=== PATIENT | female | born 1995 | race Caucasian/White ===

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

== ENCOUNTER 2017-01-09 16:23 | Outpatient (CLI) | payer OTHER ==
[~2017-01-09] VITALS: Ht 167.6 cm; Wt 91.8 kg
[2017-01-09 16:46] VITALS: Ht 167.6 cm; Wt 91.8 kg
[2017-01-09 16:47] VITALS: BP 121/66; PULSE 62; RESP 18
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
--- NOTE | 2017-01-09 20:14 | TRIAGE ---
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 Fall Risk Score Definition: No Risk: No action required Contraction Comments: PT DENIES CRAMPING Comments: PT STATES + FM Pain Presence: None/Denies Pain Type: N/A Amniotic Fluid Amount: None Vaginal Bleeding: None Datetime: 11/07/2016 19:00 Labor Evaluation Frequency: 0 Monitor Mode: External Pattern: Normal: <= 5 Contractions in 10 Minutes Resting Tone [place]: Relaxed Heart Rate FHR Baseline Rate: 160 Monitor Mode: External US FHR Baseline Changes: No Baseline Change Variability: Moderate 6-25 bpm Accelerations: 15X15 Decelerations: None Category: Category I Datetime: 11/07/2016 17:49 Assessment Type: Transfer/Discharge Maternal Assessment Level of Consciousness: Fully Conscious DTR's/Clonus: DTRs 2+; No Clonus Headache: Denies Blurred Vision: No Respiratory Effort: Unlabored; Regular Rhythm; Equal Expansion Breath Sounds, Left: Clear and Equal Breath Sounds, Right: Clear and Equal Nausea/Vomiting: Denies RUQ Epigastric Pain: Denies Lower Extremities Edema: None Degree: None Upper Extremities Edema: None Degree: None Facial Edema: None Temperature Route: Oral Fall Risk Assessment History of Falling: (0) No Secondary Diagnosis: (0) No Ambulatory Aid: (0) Bedrest/Nurse Assist Gait: (0) Normal/Bedrest/Immobile Mental Status: (0) Oriented to Own Ability Labor Evaluation Frequency: X3 Monitor Mode: External Duration (sec)2399: 60 Pattern: Normal: <= 5 Contractions in 10 Minutes Resting Tone [place]: Relaxed Heart Rate FHR Baseline Rate: 175 Monitor Mode: External US Datetime: 11/07/2016 17:21 Stage of : OB Triage Datetime: 11/07/2016 16:59 Stage of : OB Triage Datetime: 11/07/2016 16:28 Labor Evaluation Frequency: 0 Monitor Mode: External Resting Tone [place]: Relaxed Heart Rate FHR Baseline Rate: 155 Monitor Mode: External US Variability: Moderate 6-25 bpm Accelerations: 10X10 Decelerations: None Category: Category I Pain Assessment Pain Scale: 4 Pain Presence: Intermittent Pain Type: Ache Pain Location: Back Pain Goal: 3 Datetime: 11/07/2016 15:09 Labor Evaluation Frequency: 0 Monitor Mode: External Pattern: Normal: <= 5 Contractions in 10 Minutes Resting Tone [place]: Relaxed Heart Rate FHR Baseline Rate: 155 Monitor Mode: External US Variability: Moderate 6-25 bpm Decelerations: None Category: Category I Pain Assessment Pain Scale: 4 Pain Presence: Intermittent Pain Type: Ache Pain Location: Back Pain Goal: 3 Pain Relief Measures: Comfort Measures Datetime: 11/07/2016 14:11 Labor Evaluation Frequency: 0 Monitor Mode: External Resting Tone [place]: Relaxed Heart Rate FHR Baseline Rate: 155 Monitor Mode: External US Variability: Moderate 6-25 bpm Accelerations: 10X10 Decelerations: None Category: Category I Pain Assessment Pain Scale: 5 Pain Presence: Constant Pain Type: Ache Pain Location: Back Pain Goal: 3 Pain Relief Measures: Comfort Measures Datetime: 11/07/2016 14:04 Stage of : OB Triage Datetime: 11/07/2016 12:15 Stage of : OB Triage Datetime: 11/07/2016 11:55 Stage of : OB Triage Assessment Type: Triage Time of Arrival: 11/07/2016 16:59 EGA: 26.5 Arrived By: Ambulatory Arrived From: Home Maternal Assessment Level of Consciousness: Fully Conscious DTR's/Clonus: DTRs 2+; No Clonus Headache: Denies Blurred Vision: No Respiratory Effort: Unlabored; Regular Rhythm; Equal Expansion Breath Sounds, Left: Clear and Equal Breath Sounds, Right: Clear and Equal Nausea/Vomiting: Denies RUQ Epigastric Pain: Denies Facial Edema: None Temperature Route: Axillary Fall Risk Assessment History of Falling: (0) No Secondary Diagnosis: (0) No Ambulatory Aid: (0) Bedrest/Nurse Assist IV Therapy: (0) No Gait: (0) Normal/Bedrest/Immobile Mental Status: (0) Oriented to Own Ability Fall Score: 0 Fall Risk Score Definition: No Risk: No action required Labor Evaluation Frequency: 0 Monitor Mode: External Resting Tone [place]: Relaxed Heart Rate FHR Baseline Rate: 145 Monitor Mode: External US Variability: Moderate 6-25 bpm Pain Assessment Pain Scale: 6 Pain Presence: Intermittent Pain Type: Cramping Pain Location: Back Pain Goal: 3 Pain Relief Measures: Comfort Measures Datetime: 11/07/2016 11:53 Time of Arrival: 11/07/2016 10:39 Arrived By: Ambulatory Arrived From: Home Chief Complaint: BACK PAIN, RT SIDE MORE THAN LEFT, FLANK TENDERNESS, DENIES BLEEDING OR LEAKING OF FLUID Movement: Present Contractions: Denies/Absent Rupture of Membranes: Denies Vaginal Bleeding: None Vaginal Discharge: Denies Recent Sexual Intercouse: Denies Abdominal Trauma: Not Applicable Patient Complaints: Back Pain Time Provider Notified: 11/07/2016 12:15 Provider Notified: MONTY Initial Plan: MONITOR, ORAL HYDRATION, U/A, CL
--- NOTE | 2017-01-09 20:37 | TRIAGE ---
OB Triage Datetime Report Generated by CPN: 01/09/2017 20:37 Datetime: 01/09/2017 20:35 Stage of : OB Triage
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
== END 2017-01-09 20:36 | disposition home or self-care (01) ==
LOC: OBT 16:23 → L-D 16:24 → OBT 20:36
PROVIDERS: ATTEND Obstetrics & Gynecology
DX: O9A.213 Injury, poisoning and certain other consequences of external causes complicating pregnancy, third trimester (principal); Z3A.35 35 weeks gestation of pregnancy; V43.52XA Car driver injured in collision with other type car in traffic accident, initial encounter; Y92.410 Unspecified street and highway as the place of occurrence of the external cause
CPT/HCPCS: 76818; 85460; Z7500; G0463

== ENCOUNTER 2017-01-28 10:58 | Outpatient (CLI) | payer OTHER ==
[~2017-01-28] VITALS: Ht 165.1 cm; Wt 98.0 kg
[~2017-01-28 10:58] MED LIST changes: -CALC1CAP8 PO; -CEPH-443 PO
[2017-01-28 11:21] VITALS: Ht 165.1 cm; Wt 98.0 kg
[2017-01-28 11:22] VITALS: BP 130/60; PULSE 70; RESP 18
--- NOTE | 2017-01-28 12:40 | RADRPT ---
PROCEDURE: OB ultrasound for biophysical profile CLINICAL INDICATION: Decreased movement TECHNIQUE: Multiple sonographic images of the pelvis were obtained. Transabdominal views of the g ravid uterus are available for review. The images were reviewed on a PACS workstation. COMPARISON: Biophysical profile dated 01/09/2017 FINDINGS: breathing movement = 2/2 tone = 2/2 motion = 2/2 JUAN = 2/2 JUAN = 9.2 cm Single live intrauterine with cardiac activity of 134 bpm. position is cephal ic. The placenta is posterior/fundal. IMPRESSION: 1. Single live intrauterine gestation. 2. Biophysical profile = 8. 3. JUAN = 9.2 cm. The JUAN previously measured 20.2 cm on the prior examination dated 01/09/2017. RPTAT: HH .Crista Mason MD, Date Time Electronically viewed and signed by .Crista Mason MD, on 01/28/2017 12:40 .G/
--- NOTE | 2017-01-28 12:56 | PN ---
Triage Information Date/Time Reason for visit: DFM Weeks of Gestation 38+ /Para 1/0 Diabetes: none Diabetes management: diet controlled Hypertention: none Objective Vital Signs Date Time Temp Pulse Resp B/P Pulse Ox O2 Delivery O2 Flow Rate FiO2 01/28/17 11:22 98.1 70 18 130/60 99 Room Air Heart Rate: 140's Contractions: >10 Minutes Apart Disposition: Discharge Assessment/Plan Currently feels baby moves No LOF No VB +FM return to hospital in 2 days for NST NAEL MARTIN M.D. Jan 28, 2017 12:56
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
== END 2017-01-28 12:55 | disposition home or self-care (01) ==
LOC: OBT 10:58 → L-D 10:58 → OBT 12:55
PROVIDERS: ATTEND Obstetrics & Gynecology
DX: O36.8130 Decreased fetal movements, third trimester, not applicable or unspecified (principal); O24.410 Gestational diabetes mellitus in pregnancy, diet controlled; Z3A.38 38 weeks gestation of pregnancy
CPT/HCPCS: 76818; Z7500; G0463

== ENCOUNTER 2017-01-30 16:40 | Outpatient (CLI) | payer OTHER ==
[~2017-01-30] VITALS: Ht 165.1 cm; Wt 98.0 kg
[2017-01-30 16:56] VITALS: Ht 165.1 cm; Wt 98.0 kg
[2017-01-30 16:57] VITALS: BP 130/60; PULSE 72; RESP 18
--- NOTE | 2017-01-30 18:00 | RADRPT ---
PROCEDURE: OB ultrasound for biophysical profile CLINICAL INDICATION: Biophysical profile. TECHNIQUE: Multiple sonographic images of the pelvis were obtained. Transabdominal view of the gr avid uterus are available for review. The images were reviewed on a PACS workstation. COMPARISON: 01/28/2017 FINDINGS: breathing movement = 2/2 tone = 2/2 motion = 2/2 Quantitative amniotic fluid volume = 2/2 JUAN = 11.8 cm Single live intrauterine with cardiac activity at 140 beats per minute. There is a posterior placenta without previa or abruption. IMPRESSION: 1. Single living intrauterine gestation in cephalic position. 2. Biophysical profile = 8. 3. JUAN = 11.8 cm. RPTAT: [facility] Physician Shannen Date Time Electronically viewed and signed by Physician Shannen on 01/30/2017 17:59 /
--- NOTE | 2017-01-30 18:00 | TRIAGE ---
OB Triage Datetime Report Generated by CPN: 01/30/2017 18:00 Datetime: 01/30/2017 17:37 Stage of : OB Triage Maternal Assessment Level of Consciousness: Fully Conscious Labor Evaluation Frequency: 1UC/HR Monitor Mode: External Duration (sec)2399: 140 Quality: Mild Resting Tone [place]: Relaxed Heart Rate FHR Baseline Rate: 135 Monitor Mode: External US Variability: Moderate 6-25 bpm Accelerations: 15X15 Decelerations: None Category: Category I Pain Assessment Pain Scale: 0 Pain Goal: 3 Vaginal Exam Membrane Status: Intact Vaginal Bleeding: None Datetime: 01/30/2017 16:54 Monitor Mode: External Monitor Mode: External US Datetime: 01/30/2017 16:51 Assessment Type: Triage Maternal Assessment Level of Consciousness: Fully Conscious DTR's/Clonus: DTRs 2+; No Clonus Headache: Denies Blurred Vision: No Respiratory Effort: Unlabored; Regular Rhythm; Equal Expansion Breath Sounds, Left: Clear and Equal Breath Sounds, Right: Clear and Equal Nausea/Vomiting: Denies RUQ Epigastric Pain: Denies Lower Extremities Edema: Bilateral Lower Extremities Degree: 1+ Upper Extremities Edema: None Degree: None Facial Edema: None Fall Risk Assessment History of Falling: (0) No Secondary Diagnosis: (0) No Ambulatory Aid: (0) Bedrest/Nurse Assist IV Therapy: (0) No Gait: (0) Normal/Bedrest/Immobile Mental Status: (0) Oriented to Own Ability Fall Score: 0 Fall Risk Score Definition: No Risk: No action required Datetime: 01/30/2017 16:50 Time of Arrival: 01/30/2017 16:32 EGA: 38.5 Arrived By: Ambulatory Arrived From: Home Chief Complaint: PT HERE FOR REPEAT NST/BPP FOR DFM Movement: Present Contractions: Denies/Absent Rupture of Membranes: Denies Vaginal Bleeding: None Vaginal Discharge: Denies Recent Sexual Intercouse: Denies Abdominal Trauma: Not Applicable Patient Complaints: None Time Provider Notified: 01/30/2017 17:50 Provider Notified: MONTY Initial Plan: NST/BPP Datetime: 01/28/2017 11:18 Fall Score: 0 Fall Risk Score Definition: No Risk: No action required Datetime: 01/28/2017 11:17 EGA: 38.3 Datetime: 01/09/2017 19:19 Fall Score: 0 Fall Risk Score Definition: No Risk: No action required Datetime: 01/09/2017 16:42 EGA: 35.5 Datetime: 01/09/2017 16:40 Fall Score: 0 Fall Risk Score Definition: No Risk: No action required Datetime: 11/09/2016 19:16 Fall Score: 0 Fall Risk Score Definition: No Risk: No action required Datetime: 11/09/2016 07:28 Fall Score: 20 Fall Risk Score Definition: No Risk: No action required Datetime: 11/08/2016 19:25 Fall Score: 0 Fall Risk Score Definition: No Risk: No action required Datetime: 11/08/2016 07:53 Fall Score: 20 Fall Risk Score Definition: No Risk: No action required Datetime: 11/07/2016 19:25 Fall Score: 0 Fall Risk Score Definition: No Risk: No action required Datetime: 11/07/2016 11:55 EGA: 26.5 Fall Score: 0 Fall Risk Score Definition: No Risk: No action required
--- NOTE | 2017-01-30 18:37 | CONS ---
Date/Time of Note Date/Time of Note DATE: 01/30/17 TIME: 18:24 Consultation Date/Type/Reason Admit Date/Time January 30, 2017 OB triage consult. This patient is a 21 years old 1 para 0 with estimated date of confinement of 02/08/2017 which makes her 38 weeks and 5 days today she came to OB triage complaining of low movement. In reviewing her record her blood type is O Rh+ hepatitis B surface antigen is nonreactive HIV is nonreactive RPR nonreactive her rubella she is immune to chlamydia and gonorrhea were negative. On general examination she is a well-developed well-nourished at term woman complaining of occasional contractions concerned about the low movement. Her general vital signs are normal with blood pressure 130/60 and the repeat one was 119/58 ,pulse rate 72 respiration 18 temperature 98.9 and oxygen saturation was 96% room temperature as I mentioned she did not have any contractions heart tone was normal. On ultrasound; report is a single live intrauterine with cardiac activity 140 bpm the placenta was posterior no evidence of previa her amniotic fluid index is 11.8 cm biophysical profile of 8/8. with these normal finding patient was discharged home to be followed in the clinic . End of dictation . Constitutional: No chills, No diaphoresis, No disoriented, No febrile, No improved, No no complaints, No other, No poor po, No requiring IVF, No requiring O2 Eyes: No discharge, No no complaints, No other, No pain, No redness, No visual change ENT: No bleeding, No congestion, No discharge, No dysphagia, No no complaints, No other, No pain, No sore throat Respiratory: No cough, No no complaints, No other, No pain, No pleuritic pain, No shortness of breath, No sputum, No wheezing Cardiovascular: No chest pain, No edema, No lightheadedness, No no complaints, No orthopenea, No other, No palpitations, No paroxysmal nocturnal dyspnea Gastrointestinal: No blood, No constipation, No decreased appetite, No diarrhea , No flatus, No nausea, No no complaints, No other, No pain, No passing stool, No vomiting Genitourinary: other (Due to lack of contraction pelvic examination was not performed), No bleeding, No discharge, No dysuria, No flank pain, No hematuria, No no complaints Musculoskeletal: No back pain, No bone/joint pain, No neck pain, No no complaints, No other, No restricted range of motion, No swelling Skin: No bruising, No erythema, No laceration, No no complaints, No other, No pruritis, No rash, No skin lesions Neurologic: No confusion, No dizziness, No focal-weakness, No headache, No no complaints, No other, No seizure, No syncope Endocrine: No dry skin, No no complaints, No other, No polydypsia, No polyuria , No temp intolerance Lymphatic: No adenopathy, No lymphadema, No no complaints, No other, No tender nodes Additional Comments On ultrasound study result was a single live intrauterine with cardiac activity of 140 bpm placenta was posterior. Biophysical profile was 8/8 amniotic fluid index was 11.8 cm With these normal finding patient was discharged home with instruction to rest at home and return to clinic if he continues to have very l low movement or any other complications of Social History Smoking Status: Never smoker Exam/Review of Systems Vital Signs Vitals Vital Signs Date Time Temp Pulse Resp B/P Pulse Ox O2 Delivery O2 Flow Rate FiO2 01/30/17 16:57 98.9 72 18 130/60 99 Room Air ABIEL BARAJAS MD Jan 30, 2017 18:34
== END 2017-01-30 17:55 | disposition home or self-care (01) ==
LOC: OBT 16:40 → L-D 16:41 → OBT 17:55
PROVIDERS: ATTEND Obstetrics & Gynecology
DX: O36.8130 Decreased fetal movements, third trimester, not applicable or unspecified (principal); Z3A.38 38 weeks gestation of pregnancy
CPT/HCPCS: 76818; Z7500; G0463

== ENCOUNTER 2017-02-09 11:00 | Inpatient (IN) | payer OTHER ==
[~2017-02-09] VITALS: Ht 165.1 cm; Wt 96.0 kg
[2017-02-09] MEDS: LACTATED RINGER'S 1,000 ML IV SCH ×3 (14:00→23:53)
[2017-02-09 14:49] VITALS: Ht 165.1 cm; Wt 96.0 kg
[2017-02-09 14:50] VITALS: BP 139/70; PULSE 67; RESP 18
[2017-02-09] MEDS ORDERED: OXYTOCIN 30 UNITS/LR 500 ML IV PRN (15:00)
[2017-02-09] MEDS ORDERED: CARBOPROST 250 MCG INJ IM PRN (15:00)
[2017-02-09] MEDS ORDERED: MINERAL OIL LIGHT 10 ML VIAL TOP PRN (15:00)
[2017-02-09] MEDS ORDERED: OXYCODONE/ACETAMINOPHEN (5/325) TAB PO PRN (15:00)
[2017-02-09] MEDS ORDERED: OXYTOCIN 30 UNITS/LR 500 ML IV SCH (15:00)
[2017-02-09] MEDS ORDERED: IBUPROFEN 600 MG TAB PO PRN (15:00)
[2017-02-09] MEDS ORDERED: METHYLERGONOVINE 0.2 MG INJ IM PRN (15:00)
[2017-02-09] MEDS ORDERED: LIDOCAINE 1% (MPF) 30 ML INJ INJ PRN (15:00)
[2017-02-09] MEDS ORDERED: DINOPROSTONE 10 MG VAG SUPP VAG ONE (15:00)
[2017-02-09] MEDS ORDERED: BUTORPHANOL 2 MG INJ IV PRN ×2 (15:00)
[2017-02-09] MEDS ORDERED: MISOPROSTOL 200 MCG TAB PR PRN (15:00)
[2017-02-09] MEDS ORDERED: FER325 PO (15:35)
--- NOTE | 2017-02-09 15:53 | RADRPT ---
PROCEDURE: US OB. CLINICAL INDICATION: Uncertain size and dates. TECHNIQUE: Multiple sonographic images of the uterus were obtained. The images were revi ewed on a PACS workstation. COMPARISON: No prior studies are available for comparison. FINDINGS: There is a single live intrauterine gestation. heart rate is 139 beats per minute. Measurements were made in order to determine age. The results are as follows: BPD = 9.43 cm. HC = 33.34 cm. AC = 36.87 cm. FL = 7.57 cm. Estimated weight is 3873 +/- 581 grams. LMP growth percentile is 69 %. Menstrual age by ultrasound dates is 39 weeks 0 days. The estimated date of delivery is 02/16/2017. Position is cephalic and placenta is fundal right grade II. There is no evidence for an abruption or placenta previa. IMPRESSION: 1. Single live intrauterine gestation of 39 weeks 0 days menstrual age by ultrasound dates. 2. The estimated date of delivery is 02/16/2017. RPTAT: QQ .Amaury Pham MD, Date Time Electronically viewed and signed by .Amaury Pham MD, on 02/09/2017 15:53 .R/
[2017-02-09] MEDS ORDERED: ALBUTEROL HFA 8 GM INHALER INH PRN (21:30)
--- NOTE | 2017-02-09 21:41 | HP ---
Date/Time of Note Date/Time of Note DATE: 02/09/17 TIME: 21:32 OB - History Hx of Present Free Text/Dictation 20y.o primigravida at 40w1d here for induction of labor for postdate VE ftp/50%/-3 hx of using marijuana 1st 2mo admitted for cervidil induction Chief Complaint: for IOL Estimated Due Date: Feb 08, 2017 : 1 Para: 0 Spontaneous : 0 Therapeutic : 0 Care: Good Care Ultrasounds: Normal mid trimester US Obstetrical Complications: None Medical Complications: Respiratory (asthma) Past Family/Social History * Past Medical, Surgical, Family and Obstetric Histories reviewed from chart. Blood Type: O+ Rubella: immune RPR/VDRL: Negative GBS Status: Negative HBsAG: Negative OB Admission Exam Vital Signs Vital Signs Vital Signs Date Time Temp Pulse Resp B/P Pulse Ox O2 Delivery O2 Flow Rate FiO2 02/09/17 14:50 97.8 67 18 139/70 Room Air Physical Exam HEENT: WNL Heart: Rhythm Normal Lungs: Clear, Equal Abdomen: WNL Extremities: Normal Reflexes: Normal Cervical Dilatation: Fingertip Effacement: 50% Station: -3 Membranes: Intact Amniotic Fluid: Unevaluable Heart Rate: 130's Accelerations: Accelerations Present Decelerations: No Decelerations Varibility: Moderate Contractions on Admission: >10 Minutes Apart Intensity: Mild Last 72 hours Lab Results CBC & BMP 02/09/17 14:00 OB Assessment/Plan Other Assessment: IUP 40w1d Plan: Induction Induction Method: per Misoprostol Protocol SARAH MILLAN MD Feb 09, 2017 21:41
[2017-02-09] MEDS ORDERED: LACTATED RINGER'S 1,000 ML IV PRN (22:00)
[2017-02-10] MEDS ORDERED: FENTAnyl 2MCG/ML-ROPIV 0.2% 100 ML ONE (02:17)
[2017-02-10] MEDS ORDERED: NALOXONE (0.4 MG/ML) INJ IV PRN (03:00)
[2017-02-10] MEDS: FENTAnyl 2MCG/ML-ROPIV 0.2% 100 ML BAG EPI SCH ×2 (03:05→06:29)
[2017-02-10] MEDS: LACTATED RINGER'S 1,000 ML IV SCH (04:42)
[2017-02-10] MEDS ORDERED: MINERAL OIL LIGHT 10 ML VIAL TOP ONE (08:00)
[2017-02-10] MEDS: OXYTOCIN 30 UNITS/LR 500 ML IV SCH ×2 (09:15→09:38)
--- NOTE | 2017-02-10 09:38 | LDN ---
Date/Time of Note Date/Time of Note DATE: 02/10/17 TIME: 09:36 Delivery Summary normal vaginal delivery Weeks of Gestation 40w2d Placenta Delivered: Spontaneously Meconium: none Episiotomy: No Perineal laceration: 0 Laceration repair: vaginal laceration 000ch gut Anesthesia type: Epidural Estimated blood loss: 300 Sponge & Needle done & correct: Yes All needle counts correct: Yes Any foreign bodies felt in the: No Problems: Delivery Information Sex Infant Sex: male Apgars 1 Minute: 8 5 Minute: 9 Suctioning Nose & mouth suctioned at bipin: Yes Delee suction performed: No Umbilical Cord Umbilical cord with: 3 Vessels Cord presentations: no nuchal cord Cord Blood was obtained: Yes Mother & Baby Disposition Disposition Mom & Baby to Maternity; Good: Yes Mom transferred to: Other Baby to NICU: No () SARAH MILLAN MD Feb 10, 2017 09:38
[2017-02-10] MEDS: LACTATED RINGER'S 1,000 ML IV* SCH ×2 (09:39→17:39)
[2017-02-10] MEDS ORDERED: CARBOPROST 250 MCG INJ IM PRN ×2 (10:00→12:00)
[2017-02-10] MEDS ORDERED: METHYLERGONOVINE 0.2 MG INJ IM PRN ×2 (10:00→12:00)
[2017-02-10] MEDS ORDERED: OXYTOCIN 30 UNITS/LR 500 ML IV PRN ×2 (10:00→12:00)
[2017-02-10] MEDS ORDERED: MISOPROSTOL 200 MCG TAB PR PRN ×2 (10:00→12:00)
[2017-02-10 11:45] VITALS: BP 134/75; PULSE 74; RESP 18
[2017-02-10] MEDS ORDERED: ZOLPIDEM 5 MG TAB PO PRN (12:00)
[2017-02-10] MEDS ORDERED: LANOLIN 7 GM TUBE TOP PRN (12:00)
[2017-02-10] MEDS ORDERED: WITCH HAZEL/GLYCERIN PAD PR PRN (12:00)
[2017-02-10] MEDS ORDERED: BENZOCAINE 20% 56 ML SPRAY TOP PRN (12:00)
[2017-02-10] MEDS ORDERED: OXYCODONE/ASPIRIN (4.88/325) TAB PO PRN ×2 (12:00)
[2017-02-10] MEDS: IBUPROFEN 600 MG TAB PO SCH ×2 (13:28→23:28)
[2017-02-10] MEDS: SENNA/DOCUSATE NA (8.6MG/50MG) TAB PO SCH (21:00)
[2017-02-10 23:45] VITALS: BP 122/66; PULSE 72; RESP 18
[2017-02-11 04:30] VITALS: BP 133/58; PULSE 62; RESP 18
[2017-02-11] MEDS: IBUPROFEN 600 MG TAB PO SCH ×5 (06:01→23:36)
[2017-02-11 08:26] VITALS: BP 116/70; PULSE 73; RESP 18
[2017-02-11] MEDS: SENNA/DOCUSATE NA (8.6MG/50MG) TAB PO SCH ×2 (09:07→21:30)
[2017-02-11 16:55] VITALS: BP 117/50; PULSE 62; RESP 18
[2017-02-11 20:10] VITALS: BP 135/71; PULSE 67; RESP 18
--- NOTE | 2017-02-11 21:34 | PN ---
Date/Time of Note Date/Time of Note DATE: 02/11/17 TIME: 21:31 OB Subjective Subjective Subjective no c/o OB Objective Objective Objective vss afebrile fundus firm lochia min ext edematous ++ calf neg for tenderness OB Assessment/Plan Other Assessment: stable post normall vaginal delivery#1 Other plan: discharge home in am SARAH MILLAN MD Feb 11, 2017 21:34
[2017-02-12 04:10] VITALS: BP 137/79; PULSE 64; RESP 17
[2017-02-12] MEDS: IBUPROFEN 600 MG TAB PO SCH ×2 (06:03→12:24)
[2017-02-12 08:30] VITALS: BP 126/60; PULSE 62; RESP 18
[2017-02-12] MEDS ORDERED: DIPHTH/TET/ACEL PERTUSS (ADULT) 0.5 ML VIAL IM* ONE (09:00)
--- NOTE | 2017-02-12 09:01 | PD.PPDC ---
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
--- NOTE | 2017-02-12 09:01 | PD.PPDC ---
MULTIMEDIA DEVELOPER Discharge Instruction Diagnosis Final Diagnosis: s/p Condition Patient Condition: Stable Diet Diet: Resume Regular Diet Activity/Restrictions Activity: May Shower Restrictions: No Lifting No Sexual Activity Nothing in the Vagina No [place] No Tampons, douche Follow-up Follow-up with Physician: 6, Week/Weeks Return to clinic for HYPO SPLASHER Instructions: Fever greater than 101 Chills Worsening abdominal pain Excessive Vaginal Bleeding More than 2 pads per hour Unable to tolerate diet OB Instructions: Breast Tenderness Depression Blurried Vision Headache SARAH MILLAN MD Feb 12, 2017 09:01
--- NOTE | 2017-02-12 09:01 | PD.PPDC ---
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
--- NOTE | 2017-02-12 09:03 | DS ---
Date/Time of Note Date/Time of Note DATE: 02/12/17 TIME: 09:02 Obstetrical Discharge Record Final Diagnosis Final Diagnosis: Term delivered Vaginal Delivery Obstetrical Delivery: Spontaneous, Laceration, Repaired Complications Induction: Yes Rupture of Membranes: No Condition on Discharge Physical Assessment Last Vitals: vss afebrile Voiding: Yes Bowel Movement: Yes Breast: Soft, non-tender Fundus: Firm Episiotomy: none Calf Tenderness: No Patient Condition: Stable SARAH MILLAN MD Feb 12, 2017 09:03
[2017-02-12] MEDS: SENNA/DOCUSATE NA (8.6MG/50MG) TAB PO SCH (09:31)
== END 2017-02-12 15:31 | disposition home or self-care (01) | DRG 775 ==
LOC: L-D 11:50 → PP1 02-10 11:27
PROVIDERS: ADMIT Obstetrics & Gynecology; ATTEND Obstetrics & Gynecology
PROC: 10E0XZZ Delivery of Products of Conception, External Approach (ICD-10-PCS; principal; 2017-02-10)
PROC: 0UQMXZZ Repair Vulva, External Approach (ICD-10-PCS; 2017-02-10)
PROC: 3E0P3VZ Introduction of Hormone into Female Reproductive, Percutaneous Approach (ICD-10-PCS; 2017-02-10)
DX: O48.0 Post-term pregnancy (principal); O71.4 Obstetric high vaginal laceration alone; Z37.0 Single live birth; Z3A.40 40 weeks gestation of pregnancy
CPT/HCPCS: 62319; 76815; 80053; 80307; 81001; 84560; 85025; 85384; 85610; 85730; 86592; 86900; 86901; 87340; 90715; A4310; J0595; J3010; J7120

== ENCOUNTER 2018-08-18 14:52 | Emergency (ER) | payer OTHER ==
[~2018-08-18] VITALS: Wt 75.8 kg
[~2018-08-18 14:52] MED LIST changes: +ACET325T33 PO; +FER325 PO; +IBUP-1542 PO
[2018-08-18 15:01] VITALS: BP 128/66; RESP 18
[2018-08-18] MEDS ORDERED: ALBUTEROL 0.083% (NEB) 2.5 MG/3 ML AMP HHN STA (15:57)
[2018-08-18] MEDS ORDERED: METHYLPREDNISOLONE 125 MG INJ IM ONE (16:00)
[2018-08-18] MEDS ORDERED: ADV25050 INHALATION (16:44)
[2018-08-18] MEDS ORDERED: ALBU18HF INHALATION (16:44)
[2018-08-18] MEDS ORDERED: PRED20TA PO (16:44)
[2018-08-18] MEDS ORDERED: AZIT250T PO (16:44)
[2018-08-18] MEDS ORDERED: ALBU2.5V3 NEB ×2 (16:45→16:47)
--- NOTE | 2018-08-18 16:51 | ERD ---
ER Documentation Chief Complaint Chief Complaint INHALERS NOT WORKING HPI 22-year-old female presents with a history of wheezing and shortness of breath worsening over the last 3 days. She is productive cough as well. She denies fevers. She has a history of asthma usually worse with URIs patient has chest pain, vomiting, abdominal pain. She uses albuterol only and is out. ROS All systems reviewed and are negative except as per history of present illness. Medications Home Meds Active Scripts Albuterol Sulfate* (Albuterol Sulfate* Neb) 0.083%-3 Ml Neb, 2.5 MG NEB Q4 PRN for SHORTNESS OF BREATH, #30 EA Prov:JAYDON VILLEGAS MD 08/18/18 Albuterol Sulfate* (Albuterol Sulfate* Neb) 0.083%-3 Ml Neb, 2.5 MG NEB Q4 PRN for SHORTNESS OF BREATH, #30 EA Prov:JAYDON VILLEGAS MD 08/18/18 Azithromycin* (Zithromax*) 250 Mg Tablet, 250 MG PO .ZPACK DIRECTED, #6 TAB TAKE 500 MG (2 TABS) THE FIRST DAY THEN 250 MG (1 TAB) DAYS 2-5 Prov:JAYDON VILLEGAS MD 08/18/18 Prednisone* (Prednisone*) 20 Mg Tab, 40 MG PO DAILY for 5 Days, TAB Prov:JAYDON VILLEGAS MD 08/18/18 Salmeterol Xinaf/Fluticasone* (Advair*) 250-50 Diskus Inhaler, 1 INH INHALATION BID, #1 INHALER Prov:JAYDON VILLEGAS MD 08/18/18 Albuterol Sulfate* (Ventolin HFA*) 18 Gm Hfa.aer.ad, 2 PUFF INHALATION Q4H, #1 INHALER Prov:JAYDON VILLEGAS MD 08/18/18 Acetaminophen* (Tylenol*) 325 Mg Tablet, 2 TAB PO Q6 PRN for PAIN AND OR ELEVATED TEMP, #20 TAB Prov:DIMAS WARNER PA-C 05/05/18 Ibuprofen* (Motrin*) 600 Mg Tab, 600 MG PO Q6, #30 TAB Prov:DIMAS WARNER PA-C 05/05/18 Reported Medications Ferrous Sulfate* (Ferrous Sulfate*) 325 Mg Tabec, 325 MG PO DAILY, TAB 02/09/17 Multivit/Min/Fol Ac/Iron/Pren* ( S*) 1 Tab Tab, 1 TAB PO DAILY, TAB 08/18/16 Allergies Allergies: Coded Allergies: No Known Allergy (Unverified , 05/05/18) PMhx/Soc History of Surgery: No Anesthesia Reaction: No Hx Neurological Disorder: No Hx Respiratory Disorders: Yes (asthma) Hx Cardiac Disorders: No Hx Psychiatric Problems: No Hx Miscellaneous Medical Probl: No Hx Alcohol Use: No Hx Substance Use: No Hx Tobacco Use: No FmHx Family History: No diabetes, No coronary disease, No other Physical Exam Vitals Vital Signs Date Temp Pulse Resp B/P (MAP) Pulse Ox O2 O2 Flow FiO2 Time Delivery Rate 08/18/18 84 20 97 21 16:34 08/18/18 99.4 70 18 128/66 98 15:01 (86) Physical Exam Const: No acute distress Head: Atraumatic Eyes: Normal Conjunctiva ENT: Normal External Ears, Nose and Mouth. TMs normal. Neck: Full range of motion. No meningismus. Resp: Clear to auscultation bilaterally diffuse wheezing. No rales. No significant retractions. Cardio: Regular rate and rhythm, no murmurs Abd: Soft, non tender, non distended. Normal bowel sounds Skin: No petechiae or rashes Back: No midline or flank tenderness Ext: No cyanosis, or edema Neur: Awake and alert Psych: Normal Mood and Affect Results 24 hrs Current Medications Medications Dose Sig/Jose Start Time Status Last (Trade) Ordered Route PRN Stop Time Admin Dose Reason Admin 125 mg ONCE ONCE 08/18/18 DC 08/18/18 Methylprednis IM 16:00 16:10 olone Sodium 08/18/18 16:01 Succinate (Solu-Medrol) Albuterol 5 mg ONCE STAT 08/18/18 DC 08/18/18 (Proventil HHN 15:57 16:32 0.083% (Neb)) 08/18/18 15:58 Procedures/MDM She presents with signs and symptoms of acute asthma exacerbation likely related to URI. She has no signs of hypoxemia, rest or distress, signs of pneumonia on exam. She is given Solu-Medrol 125 mg IM, albuterol treatment x1. Patient clear lungs on serial exam. Patient will be discharged home with close observation and return precautions. Will administer prescription for Advair, Ventolin, short course of prednisone, as well as a prescription for albuterol solution nebulizer per patient request. Will give Zithromax as well for productive cough for last week. The patient was stable with no new complaints during the ER course. Clinically, there is no current evidence to suggest meningitis, sepsis, acute abdomen, pneumonia, stroke, acute coronary syndrome, pulmonary embolism, aortic dissection or any other emergent condition appearing to require further evaluation or hospitalization. Patient counseled regarding my diagnostic impression and care plan. Prior to discharge all questions answered. Pt agrees with treatment plan and understands strict return precautions. Pt is instructed to follow up with primary care provider within 24- 48 hours. Precautionary instructions provided including instructions to return to the ER if not improving or for any worsening or changing symptoms or concerns. Disclaimer: Inadvertent spelling and grammatical errors are likely due to EHR/dictation software use and do not reflect on the overall quality of patient care. Also, please note that the electronic time recorded on this note does not necessarily reflect the actual time of the patient encounter. Departure Diagnosis: Primary Impression: Asthma Asthma severity: unspecified severity Asthma persistence: unspecified Asthma complication type: unspecified Qualified Codes: J45.909 - Unspecified asthma, uncomplicated Condition: Stable Patient Instructions: Asthma, Acute (Adult) Referrals: NO PRIMARY,CARE PHYSICIAN (PCP) Additional Instructions: Recheck for new or worsening symptoms with primary care doctor. JAYDON VILLEGAS MD August 18, 2018 16:51
[2018-08-18 17:05] VITALS: PULSE 98
[2018-08-19] MEDS ORDERED: CEPH-443 PO (17:27)
[2018-08-19] MEDS ORDERED: IBUP-1542 PO (17:27)
== END 2018-08-18 17:06 | disposition home or self-care (01) ==
LOC: FTE 14:52
DX: J45.901 Unspecified asthma with (acute) exacerbation (principal)
CPT/HCPCS: 94664; 96372; J2930; Z7502; Z7610

== ENCOUNTER 2018-08-19 13:35 | Emergency (ER) | payer OTHER ==
[~2018-08-19] VITALS: Wt 75.1 kg
[~2018-08-19 13:35] MED LIST changes: +ADV25050 INHALATION; +ALBU18HF INHALATION; +ALBU2.5V3 NEB; +AZIT250T PO; +PRED20TA PO
[2018-08-19] MEDS ORDERED: ONDANSETRON (ODT) 4 MG TAB ODT STA (14:02)
[2018-08-19] MEDS ORDERED: DEXAMETHASONE 10 MG/ML 1 ML INJ IM STA (14:02)
[2018-08-19] MEDS ORDERED: LEVALBUTEROL (NEB) 1.25 MG/0.5 ML AMP INH STA ×2 (14:02→16:57)
[2018-08-19] MEDS ORDERED: IPRATROPIUM (NEB) 0.5 MG/2.5 ML AMP INH STA (14:03)
[2018-08-19] MEDS ORDERED: ACETAMINOPHEN 325 MG TAB PO ONE (14:30)
[2018-08-19] MEDS ORDERED: KETOROLAC 60 MG INJ IM STA (15:20)
[2018-08-19] MEDS ORDERED: CEFTRIAXONE 1 GM INJ IM ONE (17:00)
[2018-08-19] MEDS ORDERED: LIDOCAINE 1% (MPF) 5 ML VIAL INJ ONE (17:00)
[2018-08-19] MEDS ORDERED: CEPH-443 PO (17:27)
[2018-08-19] MEDS ORDERED: IBUP-1542 PO (17:27)
--- NOTE | 2018-08-19 18:38 | ERD ---
ER Documentation Chief Complaint Chief Complaint continued SOB, inspiratory pains. seen yesterday for asthma exacerbation HPI 22 year-old female patient with a past medical history of asthma presents to the ED complaining of chest pain that started earlier today. States that the wheezing has not resolved. Patient was here yesterday and received a breathing treatment. Patient was given fluticasone, albuterol as well as albuterol machine prescription. Patient reports no recent travel. Denies any leg pain. Denies any pleuritic chest pain, dyspnea on exertion, orthopnea. Patient reports that the anterior portion of her chest worsens in pain when she presses onto her chest. Describes the pain as sharp and rates it a 4 out of 10. ROS All systems reviewed and are negative except as per history of present illness. Medications Home Meds Active Scripts Ibuprofen* (Motrin*) 600 Mg Tab, 600 MG PO Q6, #30 TAB Prov:KAVYA GILLILAND PA-C 08/19/18 Cephalexin* (Keflex*) 500 Mg Capsule, 500 MG PO QID for 10 Days, CAP Prov:KAVYA GILLILAND PA-C 08/19/18 Albuterol Sulfate* (Albuterol Sulfate* Neb) 0.083%-3 Ml Neb, 2.5 MG NEB Q4 PRN for SHORTNESS OF BREATH, #30 EA Prov:JAYDON BEDOLLA MD 08/18/18 Albuterol Sulfate* (Albuterol Sulfate* Neb) 0.083%-3 Ml Neb, 2.5 MG NEB Q4 PRN for SHORTNESS OF BREATH, #30 EA Prov:JAYDON BEDOLLA MD 08/18/18 Azithromycin* (Zithromax*) 250 Mg Tablet, 250 MG PO .ZPACK DIRECTED, #6 TAB TAKE 500 MG (2 TABS) THE FIRST DAY THEN 250 MG (1 TAB) DAYS 2-5 Prov:JAYDON BEDOLLA MD 08/18/18 Prednisone* (Prednisone*) 20 Mg Tab, 40 MG PO DAILY for 5 Days, TAB Prov:JAYDON BEDOLLA MD 08/18/18 Salmeterol Xinaf/Fluticasone* (Advair*) 250-50 Diskus Inhaler, 1 INH INHALATION BID, #1 INHALER Prov:JAYDON BEDOLLA MD 08/18/18 Albuterol Sulfate* (Ventolin HFA*) 18 Gm Hfa.aer.ad, 2 PUFF INHALATION Q4H, #1 INHALER Prov:JAYDON BEDOLLA MD 08/18/18 Acetaminophen* (Tylenol*) 325 Mg Tablet, 2 TAB PO Q6 PRN for PAIN AND OR ELEVATED TEMP, #20 TAB Prov:DIMAS WARNER PA-C 05/05/18 Ibuprofen* (Motrin*) 600 Mg Tab, 600 MG PO Q6, #30 TAB Prov:DIMAS WARNER PA-C 05/05/18 Reported Medications Ferrous Sulfate* (Ferrous Sulfate*) 325 Mg Tabec, 325 MG PO DAILY, TAB 02/09/17 Multivit/Min/Fol Ac/Iron/Pren* ( S*) 1 Tab Tab, 1 TAB PO DAILY, TAB 08/18/16 Allergies Allergies: Coded Allergies: No Known Allergy (Unverified , 05/05/18) PMhx/Soc History of Surgery: No Anesthesia Reaction: No Hx Neurological Disorder: No Hx Respiratory Disorders: Yes (asthma) Hx Cardiac Disorders: No Hx Psychiatric Problems: No Hx Miscellaneous Medical Probl: No Hx Alcohol Use: No Hx Substance Use: No Hx Tobacco Use: No Smoking Status: Never smoker FmHx Family History: No diabetes, No coronary disease Physical Exam Vitals Vital Signs Date Temp Pulse Resp B/P (MAP) Pulse Ox O2 O2 Flow FiO2 Time Delivery Rate 08/19/18 98.0 99 18 131/60 99 Room Air 19:00 (83) 08/19/18 80 17 98 21 14:40 08/19/18 100.2 14:18 08/19/18 100.2 80 24 145/77 95 13:38 (99) Physical Exam Const: [id number], well-nourished. In no acute distress. Head: Atraumatic, normocephalic Eyes: Normal Conjunctiva without injection. No purulent discharge. PERRL. EOMI ENT: Normal external ear. Ear canal without erythema. Tympanic membrane pearly diaz without effusion or bulging. Nasal canal clear with normal turbinates. Mois t oropharynx without tonsillar exudates. Non-erythematous pharynx. Uvula midline. No drooling. No trismus. Neck: Full range of motion. No meningismus. No cervical lymphadenopathy. Resp: Inspiratory and expiratory wheezing noted. No rhonchi, rales, or c rackles. No accessory muscle use. No retractions. Cardio: Regular rate and rhythm. No murmurs, rubs or gallops. Abd: Soft, non tender, non distended. Normal bowel sounds. No palpable masses. No rebound tenderness. No guarding. Skin: No petechiae or rashes Back: No midline tenderness. No CVA tenderness. Ext: No cyanosis, or edema. Neur: Awake and alert. Psych: Normal Mood and Affect Results 24 hrs Laboratory Tests Test 08/19/18 16:27 08/19/18 16:29 Bedside Urine pH (LAB) 6.0 Bedside Urine Protein (LAB) 3+ Bedside Urine Glucose (UA) Negative Bedside Urine Ketones (LAB) 1+ Bedside Urine Blood 3+ Bedside Urine Nitrite (LAB) Positive Bedside Urine Leukocyte Esterase (L 1+ POC Beta HCG, Qualitative NEGATIVE Current Medications Medications Dose Sig/Jose Start Time Status Last (Trade) Ordered Route PRN Stop Time Admin Dose Reason Admin 5 mg ONCE STAT 08/19/18 DC 08/19/18 Levalbuterol INH 14:02 14:37 (Xopenex 08/19/18 14:04 Neb) 10 mg ONCE STAT 08/19/18 DC 08/19/18 Dexamethasone IM 14:02 14:17 (Decadron) 08/19/18 14:04 Ondansetron 4 mg ONCE STAT 08/19/18 DC 08/19/18 HCl (Zofran ODT 14:02 14:18 Odt) 08/19/18 14:04 650 mg ONCE ONCE 08/19/18 DC 08/19/18 Acetaminophen PO 14:30 14:18 (Tylenol 08/19/18 14:31 Tab) Ipratropium 1 mg ONCE STAT 08/19/18 DC 08/19/18 [place] INH 14:03 14:37 (Atrovent 08/19/18 14:04 0.02% (Neb)) Ketorolac 60 mg ONCE STAT 08/19/18 DC Tromethamine IM 15:20 (Toradol) 08/19/18 15:21 Ceftriaxone 1 gm ONCE ONCE 08/19/18 DC 08/19/18 Sodium IM 17:00 18:51 (Rocephin) 08/19/18 17:01 Lidocaine 5 ml ONCE ONCE 08/19/18 DC 08/19/18 (Xylocaine INJ 17:00 18:52 1% (Mpf)) 08/19/18 17:01 5 mg ONCE STAT 08/19/18 DC 08/19/18 Levalbuterol INH 16:57 17:18 (Xopenex 08/19/18 17:00 Neb) Procedures/MDM 22-year-old female patient with a past medical history of asthma presents ED com plaining of chest pain that started earlier today associated with wheezing. Patient is afebrile and nontoxic-appearing. This was less than my supervising physician, Dr. Bedolla since patient was seen by him yesterday. We both agreed to order a chest x-ray, EKG for further evaluation. Patient was given 2 breathing treatments consisting of 5 mg continuous Xopenex, 1 mg Atrovent with improvement of her symptoms. Patient's pulse ox is within normal limits. Upon ordering a urine for Toradol 60 mg IM, patient did not want the Toradol. A urine dip was performed which there was an incidental finding of positive nitrite, leukocyte esterase, hematuria noted. Patient will be treated for urinary tract infection. Patient did come in with a low-grade fever 100.2. This could be secondary to her UTI versus URI symptoms associated with an asthma exacerbation. Patient regardless will still be treated with ceftriaxone 1 g here in the ED for urinary tract infection as well as outpatient management with Keflex. Patient is to continue her prednisone, prescribed yesterday for her wheezing. Patient should continue breathing treatments albuterol. EKG reviewed and interpreted by Dr. Bedolla Rate/Rhythm: [82 bpm, Normal Sinus Rhythm] No ectopy, no ST elevations, normal axis. QRS, ST, T-waves: [No changes consistent w/ acute ischemia] Impression: [No evidence of ischemia or arrhythmia] Low suspicion for acute myocardial infarction, pneumothorax, pneumonia, cardiac tamponade, Qtjcx-Lszcgzmkb-Zrsbi Syndrome, Brugada Syndrome, pulmonary embolism, AAA, aortic dissection, thoracic aortic dissection, endocarditis, myocarditis, pericarditis, cocaine-related ischemia, Boerhaave's syndrome, cardiac dysrhythmias,meningitis, intracranial bleed, seizure, stroke, TIA or other emergent conditions. Diagnosis: UTI, Wheezing, Chest Pain Discharge medications: Ibuprofen, Keflex Follow up with primary care physician in 1-2 days. Instructed patient to return to the ED sooner for any worsening symptoms. Patient's questions were answered. Patient is hemodynamically stable. Patient understood and agreed with discharge plan. Patient discharged stable. Disclaimer: Inadvertent spelling and grammatical errors are likely due to EHR/dictation software use and do not reflect on the overall quality of patient care. Also, please note that the electronic time recorded on this note does not necessarily reflect the actual time of the patient encounter. Departure Diagnosis: Primary Impression: UTI (urinary tract infection) Urinary tract infection type: site unspecified Hematuria presence: without hematuria Qualified Codes: N39.0 - Urinary tract infection, site not specified Additional Impressions: Wheezing Chest pain Chest pain type: unspecified Qualified Codes: R07.9 - Chest pain, unspecified Condition: Stable Patient Instructions: Urinary Tract Infections in Women, Asthma, Acute (Adult), Chest Wall Pain, Costochondritis Referrals: [facility] YOU HAVE RECEIVED A MEDICAL SCREENING EXAM AND THE RESULTS INDICATE THAT YOU DO NOT HAVE A CONDITION THAT REQUIRES URGENT TREATMENT IN THE EMERGENCY DEPARTMENT. FURTHER EVALUATION AND TREATMENT OF YOUR CONDITION CAN WAIT UNTIL YOU ARE SEEN IN YOUR DOCTORS OFFICE WITHIN THE NEXT 1-2 DAYS. IT IS YOUR RESPONSIBILITY TO MAKE AN APPOINTMENT FOR FOLOW-UP CARE. IF YOU HAVE A PRIMARY DOCTOR --you should call your primary doctor and schedule an appointment IF YOU DO NOT HAVE A PRIMARY DOCTOR YOU CAN CALL OUR PHYSICIAN REFERRAL HOTLINE AT IF YOU CAN NOT AFFORD TO SEE A PHYSICIAN YOU CAN CHOSE FROM THE FOLLOWING [facility] CLINICS [facility] [address] [facility] [address] [facility] [address] [facility] [address] [facility] [address] [facility]. [facility]. [address] [facility]. [facility] YOU HAVE RECEIVED A MEDICAL SCREENING EXAM AND THE RESULTS INDICATE THAT YOU DO NOT HAVE A CONDITION THAT REQUIRES URGENT TREATMENT IN THE EMERGENCY DEPARTMENT. FURTHER EVALUATION AND TREATMENT OF YOUR CONDITION CAN WAIT UNTIL YOU ARE SEEN IN YOUR DOCTORS OFFICE WITHIN THE NEXT 1-2 DAYS. IT IS YOUR RESPONSIBILITY TO MAKE AN APPOINTMENT FOR FOLOW-UP CARE. IF YOU HAVE A PRIMARY DOCTOR --you should call your primary doctor and schedule and appointment IF YOU DO NOT HAVE A PRIMARY DOCTOR YOU CAN CALL OUR PHYSICIAN REFERRAL HOTLINE AT . IF YOU CAN NOT AFFORD TO SEE A PHYSICIAN YOU CAN CHOSE FROM THE FOLLOWING [facility] INSTITUTIONS: [facility] [address] [place] [address] [facility] [address] [place] [address] [facility] [address] [place] [address] [facility] URGENT CARE/SPECIALTIES Additional Instructions: Continue the steriods and inhalers prescribed yesterday for your asthma exacerbation. Antibiotics have been prescribed to you for your urinary tract infection. Please complete the course of the antibiotics. Call your primary care doctor TOMORROW for an appointment during the next 2-3 days.See the doctor sooner or return here if your condition worsens before your appointment time. KAVYA GILLILAND PA-C August 19, 2018 18:38
[2018-08-19 19:00] VITALS: BP 131/60; PULSE 99; RESP 18
--- NOTE | 2018-08-21 14:44 | RADRPT ---
Vent Rate: 82 bpm RR Interval: [address] Interval: 154 msec QRS Duration: 106 msec QT Interval: 404 msec QTC Interval: 472 msec P-R-T Wilbur: 65 - 80 - 59 degrees Normal sinus rhythm with sinus arrhythmia Incomplete right bundle branch block Borderline ECG Electronically Signed By: [facility]
== END 2018-08-19 19:00 | disposition home or self-care (01) ==
LOC: FTE 13:35
DX: N39.0 Urinary tract infection, site not specified (principal); J45.901 Unspecified asthma with (acute) exacerbation
CPT/HCPCS: 71045; 81003; 81025; 93005; 94644; 96372; J0696; J1100; Z7502; Z7610

== ENCOUNTER 2018-10-28 17:46 | Emergency (ER) | payer OTHER ==
[~2018-10-28] VITALS: Ht 165.1 cm; Wt 75.5 kg
[~2018-10-28 17:46] MED LIST changes: +ACET500C5 PO; +CEPH-443 PO; +ONDA4TAB14 PO
[2018-10-28 17:55] VITALS: Ht 165.1 cm; Wt 75.5 kg
[2018-10-28] MEDS ORDERED: morphine 4 MG/ML VIAL IV STA (18:55)
[2018-10-28] MEDS ORDERED: ONDANSETRON 4 MG INJ IV STA (18:55)
[2018-10-28] MEDS ORDERED: FAMOTIDINE 20 MG INJ IV STA (18:55)
[2018-10-28] MEDS ORDERED: SOD CHLORIDE 0.9% 1,000 ML IV STA (18:55)
--- NOTE | 2018-10-28 18:57 | ERD ---
ER Documentation Chief Complaint Chief Complaint interm vomiting x1.5wks worse today. feels feverish. hx IUD 07/2017 HPI Is a 22-year-old female patient who presents to the emergency room with complaint of intermittent vomiting x1-1/2-week. Concerned it may be due to her IUD. Subjective fever, some diarrhea, no abdominal pain, no vaginal bleeding, no vaginal discharge, no dysuria. History significant for asthma. LMP October 10. No recent travel, no sick contacts. ROS All systems reviewed and are negative except as per history of present illness. Medications Home Meds Active Scripts Ibuprofen* (Motrin*) 600 Mg Tab, 600 MG PO Q6 for 10 Days, #30 TAB Prov:ELEAZAR JASMINE NP 10/28/18 Acetaminophen* (Tylophen*) 500 Mg Capsule, 2 CAP PO Q8H PRN for PAIN AND OR ELEVATED TEMP for 10 Days, #20 CAP Prov:ELEAZAR JASMINE NP 10/28/18 Ondansetron (Ondansetron Odt) 4 Mg Tab.rapdis, 4 MG PO Q6H PRN for NAUSEA AND/OR VOMITING for 7 Days, #10 TAB Prov:ELEAZAR JASMINE NP 10/28/18 Ibuprofen* (Motrin*) 600 Mg Tab, 600 MG PO Q6, #30 TAB Prov:KAVYA GILLILAND PA-C 08/19/18 Cephalexin* (Keflex*) 500 Mg Capsule, 500 MG PO QID for 10 Days, CAP Prov:KAVYA GILLILAND PA-C 08/19/18 Albuterol Sulfate* (Albuterol Sulfate* Neb) 0.083%-3 Ml Neb, 2.5 MG NEB Q4 PRN for SHORTNESS OF BREATH, #30 EA Prov:JAYDON VILLEGAS MD 08/18/18 Albuterol Sulfate* (Albuterol Sulfate* Neb) 0.083%-3 Ml Neb, 2.5 MG NEB Q4 PRN for SHORTNESS OF BREATH, #30 EA Prov:JAYDON VILLEGAS MD 08/18/18 Azithromycin* (Zithromax*) 250 Mg Tablet, 250 MG PO .ZPACK DIRECTED, #6 TAB TAKE 500 MG (2 TABS) THE FIRST DAY THEN 250 MG (1 TAB) DAYS 2-5 Prov:JAYDON VILLEGAS MD 08/18/18 Prednisone* (Prednisone*) 20 Mg Tab, 40 MG PO DAILY for 5 Days, TAB Prov:JAYDON VILLEGAS MD 08/18/18 Salmeterol Xinaf/Fluticasone* (Advair*) 250-50 Diskus Inhaler, 1 INH INHALATION BID, #1 INHALER Prov:JAYDON VILLEGAS MD 08/18/18 Albuterol Sulfate* (Ventolin HFA*) 18 Gm Hfa.aer.ad, 2 PUFF INHALATION Q4H, #1 INHALER Prov:JAYDON VILLEGAS MD 08/18/18 Acetaminophen* (Tylenol*) 325 Mg Tablet, 2 TAB PO Q6 PRN for PAIN AND OR ELEVATED TEMP, #20 TAB Prov:DIMAS WARNER PA-C 05/05/18 Ibuprofen* (Motrin*) 600 Mg Tab, 600 MG PO Q6, #30 TAB Prov:DIMAS WARNER PA-C 05/05/18 Reported Medications Ferrous Sulfate* (Ferrous Sulfate*) 325 Mg Tabec, 325 MG PO DAILY, TAB 02/09/17 Multivit/Min/Fol Ac/Iron/Pren* ( S*) 1 Tab Tab, 1 TAB PO DAILY, TAB 08/18/16 Allergies Allergies: Coded Allergies: No Known Allergy (Unverified , 10/28/18) PMhx/Soc History of Surgery: No Anesthesia Reaction: No Hx Neurological Disorder: No Hx Respiratory Disorders: Yes (asthma) Hx Cardiac Disorders: No Hx Psychiatric Problems: No Hx Miscellaneous Medical Probl: No Hx Alcohol Use: No Hx Substance Use: No Hx Tobacco Use: No Smoking Status: Never smoker FmHx Family History: No diabetes, No coronary disease, No other Physical Exam Vitals Vital Signs Date Temp Pulse Resp B/P (MAP) Pulse Ox O2 O2 Flow FiO2 Time Delivery Rate 10/28/18 99.1 71 20 110/52 99 Room Air 22:00 (71) 10/28/18 100.2 20:55 10/28/18 100.7 89 16 123/60 98 17:55 (81) Physical Exam Const: No acute distress Head: Atraumatic Eyes: Normal Conjunctiva, PERRL ENT: Normal External Ears, Nose and Mouth. Pharynx pink, no lesions, no exudate. Neck: Full range of motion. No meningismus. No lymphadenopathy. Resp: Clear to auscultation bilaterally, no wheezing Cardio: Regular rate and rhythm, no murmurs Abd: Soft, non distended. Normal bowel sounds, no organomegaly. +myrphy, +RLQ rebound tenderness Skin: No petechiae or rashes Back: No midline or flank tenderness, no CVT Ext: No cyanosis, or edema Neur: Awake and alert, CNII-XII intact, clear speech, steady gait Psych: Normal Mood and Affect Result Diagram: 10/28/18191110/28/181911 Results 24 hrs Laboratory Tests Test 10/28/18 19:12 10/28/18 19:14 White Blood Count 12.2 10^3/ul Red Blood Count 4.67 10^6/ul Hemoglobin 13.4 g/dl Hematocrit 40.4 % Mean Corpuscular Volume 86.5 fl Mean Corpuscular Hemoglobin 28.7 pg Mean Corpuscular Hemoglobin Concent 33.2 g/dl Red Cell Distribution Width 13.2 % Platelet Count 258 10^3/UL Mean Platelet Volume 10.2 fl Immature Granulocytes % 0.400 % Neutrophils % 90.4 % Lymphocytes % 4.4 % Monocytes % 4.0 % Eosinophils % 0.6 % Basophils % 0.2 % Nucleated Red Blood Cells % 0.0 /100WBC Immature Granulocytes # 0.050 10^3/ul Neutrophils # 11.0 10^3/ul Lymphocytes # 0.5 10^3/ul Monocytes # 0.5 10^3/ul Eosinophils # 0.1 10^3/ul Basophils # 0.0 10^3/ul Nucleated Red Blood Cells # 0.0 10^3/ul Urine Color YELLOW Urine Clarity CLEAR Urine pH 5.0 Urine Specific Snelling 1.020 Urine Ketones 1+ mg/dL Urine Nitrite NEGATIVE mg/dL Urine Bilirubin NEGATIVE mg/dL Urine Urobilinogen NEGATIVE mg/dL Urine Leukocyte Esterase NEGATIVE Fritz/ul Urine Microscopic RBC 2 /HPF Urine Microscopic WBC 1 /HPF Urine Squamous Epithelial Cells FEW /HPF Urine Mucus FEW /HPF Urine Hemoglobin 1+ mg/dL Urine Glucose NEGATIVE mg/dL Urine Total Protein NEGATIVE mg/dl Sodium Level 142 mmol/L Potassium Level 3.7 mmol/L Chloride Level 105 mmol/L Carbon Dioxide Level 25 mmol/L Anion Gap 12 Blood Urea Nitrogen 14 mg/dl Creatinine 0.67 mg/dl Est Glomerular Filtrat Rate mL/min > 60 mL/min Glucose Level 122 mg/dl Calcium Level 9.9 mg/dl Total Bilirubin 0.9 mg/dl Direct Bilirubin 0.00 mg/dl Indirect Bilirubin 0.9 mg/dl Aspartate Amino Transf (AST/SGOT) 27 IU/L Alanine Aminotransferase (ALT/SGPT) 22 IU/L Alkaline Phosphatase 62 IU/L Total Protein 8.6 g/dl Albumin 4.8 g/dl Globulin 3.80 g/dl Albumin/Globulin Ratio 1.26 Lipase 40 U/L POC Beta HCG, Qualitative NEGATIVE Current Medications Medications Dose Sig/Jose Start Time Status Last (Trade) Ordered Route PRN Stop Time Admin Dose Reason Admin Sodium 1,000 ml @ Q1H STAT 10/28/18 DC 10/28/18 Chloride 1,000 mls/hr IV 18:55 19:19 10/28/18 19:54 Morphine 4 mg ONCE STAT 10/28/18 DC 10/28/18 Sulfate IV 18:55 19:19 (morphine) 10/28/18 18:57 Ondansetron 4 mg ONCE STAT 10/28/18 DC 10/28/18 HCl (Zofran IV 18:55 19:19 Inj) 10/28/18 18:57 Famotidine 20 mg ONCE STAT 10/28/18 DC 10/28/18 (Pepcid Iv) IV 18:55 19:19 10/28/18 18:57 IV Flush 10 ml STK-MED 10/28/18 DC (NS 10 ml) ONCE .ROUTE 19:50 10/28/18 19:51 Sodium 100 ml @ ud STK-MED 10/28/18 DC Chloride ONCE .ROUTE 19:50 10/28/18 19:51 Iohexol 150 ml STK-MED 10/28/18 DC (Omnipaque ONCE .ROUTE 19:50 300mg/ ml) 10/28/18 19:51 10 mg ONCE ONCE 10/28/18 DC 10/28/18 Metoclopramid IV 21:00 20:53 e HCl 10/28/18 21:01 (Reglan) Ketorolac 15 mg ONCE STAT 10/28/18 DC 10/28/18 Tromethamine IV 21:07 21:12 (Toradol) 10/28/18 21:10 Procedures/MDM PROCEDURES/MDM DIAGNOSTIC IMAGING: Read by radiologist. CT Abd/Pel IMPRESSION: Right adnexal 2.0 cm cyst. Trace pelvic free fluid. Normal appendix identified. Otherwise no acute abnormality identified within the abdomen and pelvis. LAB INTERPRETATION: Slight leukocytosis, no electrolyte disturbance, normal kidney function, normal liver function, lipase negative for pancreatitis, negative. Urine with negative leukocyte esterase, negative nitrites. -Medications: NS, Zofran, Reglan, morphine, famotidine Patient tolerated medication well with no adverse reactions. Patient reported improvement in pain and nausea -Consultation: Dr. Reina MDM: [summary of complaint and reasons, scores] DISPOSITION and PLAN: RX: The patient has been discharge home to follow-up with community physician. Departure Diagnosis: Primary Impression: Gastroenteritis Condition: Stable ELEAZAR JASMINE NP Oct 28, 2018 18:57
[2018-10-28] MEDS ORDERED: IOHEXOL 300MG/ML 150 ML BTL ONE (19:50)
[2018-10-28] MEDS ORDERED: SOD CHLORIDE 0.9% 100 ML ONE (19:50)
[2018-10-28] MEDS ORDERED: METOCLOPRAMIDE 10 MG INJ IV ONE (21:00)
[2018-10-28] MEDS ORDERED: KETOROLAC 15 MG INJ IV STA (21:07)
[2018-10-28 22:00] VITALS: BP 110/52; PULSE 71; RESP 20
== END 2018-10-28 22:03 | disposition home or self-care (01) ==
LOC: FTE 17:46
DX: K52.9 Noninfective gastroenteritis and colitis, unspecified (principal); J45.909 Unspecified asthma, uncomplicated
CPT/HCPCS: 36415; 74177; 80053; 81001; 81025; 83690; 85025; 96374; 96375; J1885; J2270; J2405; J2765; J7030; Q9967; Z7502; Z7610